=== PATIENT | female | born 1965 | race Hispanic/Latino ===

== ENCOUNTER → 2019-06-15 | Outpatient (CLI) | payer BC ==
[~2019-06-15] MED LIST: ESTR-6 PO; LACT1CAP78 PO; MULTIVITAMIN PO
== END | disposition home or self-care (01) ==
LOC: RAH 12:05
PROVIDERS: ATTEND Urology
DX: N20.0 Calculus of kidney (principal); M51.35 Other intervertebral disc degeneration, thoracolumbar region
CPT/HCPCS: 74018; 76100

== ENCOUNTER 2025-06-07 10:12 | Emergency (ER) | payer BC ==
[~2025-06-07] VITALS: Ht 144.8 cm; Wt 60.9 kg
[~2025-06-07 10:12] MED LIST changes: -ESTR-6 PO; -LACT1CAP78 PO; +LOSA25TA41 PO; -MULTIVITAMIN PO
--- NOTE | 2025-06-07 10:40 | ERN ---
ED Note History of Present Illness Stated Complaint: FALL Chief Complaint: Mechanical Fall Time Seen by MD: 10:19 Dictation: Ms. Amezquita is a 59-year-old female who was sent by PCP office for evaluation of concussive symptoms. Patient was involved in a mechanical fall two days ago with no loss of consciousness and was evaluated earlier today by her physician after multiple episodes of nausea, vomiting, headache and generalized dizziness. She is not on any blood thinners. Denies LOC at that time. Allergies: Coded Allergies: No Known Allergies (Unverified Allergy, Unknown, 07/03/14) No Known Drug Allergies (Verified Allergy, Unknown, 07/03/14) Home Meds Reported Medications Losartan Potassium (Losartan Potassium) 25 Mg Tablet, 1 TAB PO DAILY for 30 Days, #30 TAB 0 Refills 06/13/24 Past Medical History Past Medical History: High Cholesterol, Hypertension Additional Past Medical Hx: PELVIC MASS Surgical History: Hysterectomy, Other Surgical History Other: right ovary sx Review of System Dictation Positive for headache, nausea, vomiting Review of Systems: & the rest were negative. Initial Vital Sign VS Vital Signs Date Time Temp Pulse Resp B/P (MAP) Pulse Ox O2 Delivery O2 Flow Rate FiO2 06/07/25 10:17 98.2 86 16 117/62 97 Room Air 0 06/07/25 10:23 21 Physical Exam Dictation GENERAL APPEARANCE NAD, activity normal for age, well developed/ well nourished, no cyanosis, pallor, or diaphoresis. EYES lids/conjunctiva normal. EARS/NOSE/THROAT Mucous membranes moist, nares normal, lips/teeth normal uvula midline without oral pharyngeal erythema, exudate or swelling TMs normal bilaterally. No lymphangitis/lymphedema. HEAD/NECK normocephalic atraumatic, no facial trauma, neck is supple. RESPIRATORY respiratory effort normal, speaks in full sentences, no tripod position, no accessory muscle use. Lungs clear to auscultation without rhonchi, wheezes, rales CARDIAC Regular rate and rhythm, no edema. ABDOMINAL Soft, ND/NT. No evidence of fluid wave. No pulsatile masses on exam, rebound tenderness, Badillo sign or pain over Mcburney's point. MUSCLES/EXTREMITIES No abnormal range of motion, no swelling. SKIN Warm, pink and dry. No rashes, dermatoses, petechiae or lesions. NEUROLOGICAL Speech is clear and appropriate. Normal level of consciousness. Gait and coordination are normal. 5/5 strength in all extremities. GCS 15 . No nuchal rigidity. Answers questions appropriately. Alert and oriented. 1 PSYCH Normal mood and affect. Judgement/competence is appropriate ED Course ED Course Orders Procedure Category Date Status Time Ct Head/Brain W/O CT 06/07/25 Resulted Contrast 10:19 Vital Signs Date Time Temp Pulse Resp B/P (MAP) Pulse Ox O2 Delivery O2 Flow Rate FiO2 06/07/25 11:12 98.2 83 20 119/67 97 Room Air* 0 21 06/07/25 10:23 98.2 86 16 117/62 97 Room Air* 0 21 06/07/25 10:17 98.2 86 16 117/62 97 Room Air 0 Medical Decision Making MDM 59-year-old female sent over for a CT scan of head to rule out intracranial bleed. CT scan here was negative. Likely concussive symptoms. Advised on concerning signs and symptoms for which to return to the emergency room. Advised on supportive care guidelines at this time. We will have patient follow up with PCP. All questions answered. CT was reviewed with the patient and patient's daughter. DX & DISP Disposition: Discharge Departure Impression: Primary Impression: Concussion Condition: Stable Referrals: YAZ MEYER MD (PCP) IGNACIO VELAZQUEZ MD Jun 07, 2025 10:40
--- NOTE | 2025-06-07 12:02 | HMCIMG ---
Exam: NONCONTRAST CT BRAIN REASON: s/p fall 2 days ago. Sent by PCP for n/v and continuous BOOTH. No blood thin. COMPARISON: None. TECHNIQUE: Images are obtained from vertex to the skull base. The exam was performed without IV contrast. FINDINGS: There is normal appearing brain parenchyma. There are no focal mass lesions. There is is no evidence of intracranial hemorrhage or acute stroke. Ventricles and sulci appear normal. Posterior fossa and brainstem structures are unremarkable. Paranasal sinuses and remaining extracranial soft tissues appear normal as well.There is mild global atrophy consistent with patient's chronological age. IMPRESSION: 1. No acute intracranial process. CT was performed with one or more following dose reduction techniques: automated exposure control, adjustment of the mA and kv according to patient's size, or use of a iterative reconstruction technique.
[2025-06-07 12:45] VITALS: BP 123/69; PULSE 80; RESP 20; TEMP 98.3; O2SAT 98
--- NOTE | 2025-06-07 12:52 | NUR ---
PT AMBULATING WITH OUT ASSISTANCE OUT THE ER DISCHARGE DOOR NAD.
== END 2025-06-07 12:53 | disposition home or self-care (01) ==
LOC: EDH 10:12
DX: S06.0XAA Concussion with loss of consciousness status unknown, initial encounter (principal); E78.00 Pure hypercholesterolemia, unspecified; I10 Essential (primary) hypertension; Z79.899 Other long term (current) drug therapy; Z90.710 Acquired absence of both cervix and uterus; W18.39XA Other fall on same level, initial encounter; Y93.89 Activity, other specified; Y92.89 Other specified places as the place of occurrence of the external cause; Y99.8 Other external cause status
CPT/HCPCS: 70450; 99284